=== PATIENT | female | born 1960 | race Caucasian/White ===

== ENCOUNTER 2017-03-20 06:43 | Emergency (ER) | payer MEDICARE, OTHER ==
[2017-03-20] MEDS ORDERED: K-TA10TA2 PO (06:53)
[2017-03-20] MEDS ORDERED: GABA-283 PO (06:53)
[2017-03-20] MEDS ORDERED: MAGN1TAB25 PO (06:53)
[2017-03-20] MEDS ORDERED: CALC600T7 PO (06:53)
[2017-03-20] MEDS ORDERED: LEVO112T2 PO (06:53)
[2017-03-20] MEDS ORDERED: predniSONE 20 MG TAB PO ONE (07:15)
[2017-03-20] MEDS ORDERED: IPRATROPIUM 0.5MG/ALBUTEROL 2.5MG INH SOL UD 3ML (DUONEB)(J7620) NEB ONE (07:15)
[2017-03-20] MEDS ORDERED: ALBU17IN2 INH (07:48)
[2017-03-20] MEDS ORDERED: TUSSSUS6 PO (07:48)
[2017-03-20] MEDS ORDERED: PRED20TA PO (07:48)
[2017-03-20 08:04] VITALS: BP 144/74
== END 2017-03-20 08:05 | disposition home or self-care (01) ==
LOC: M ED 07:56
DX: J20.9 Acute bronchitis, unspecified (principal); J04.0 Acute laryngitis; E03.9 Hypothyroidism, unspecified; G36.0 Neuromyelitis optica [Devic]; Z79.899 Other long term (current) drug therapy; Z79.52 Long term (current) use of systemic steroids

== ENCOUNTER → 2019-07-09 | Outpatient (REF) | payer MEDICARE, OTHER ==
[~2019-07-09] MED LIST: ALBU17IN2 INH; CALC600T7 PO; GABA-845 PO; K-TA10TA2 PO; LEVO112T2 PO; MAGN1TAB26 PO; PRED20TA PO; TUSS1SUS2 PO
== END ==
LOC: M SFHCLERA 10:47
PROVIDERS: ATTEND Physician Assistant
DX: R30.0 Dysuria (principal)
CPT/HCPCS: 81002; 87088; 87186; G0463

== ENCOUNTER → 2019-10-21 | Outpatient (CLI) | payer MEDICARE, OTHER ==
[2019-10-21 10:45] LABS: BASO # 0.1 10^3/uL (0.0-0.2); BASO % 1.3 % (0.0-1.0); EOS # 0.2 10^3/uL (0.0-0.5); EOS % 2.9 % (0.0-3.0); HEMATOCRIT 41.7 % (36.0-47.0); HEMOGLOBIN 14.1 g/dl (12.0-15.5); LYMPH # 2.1 10^3/uL (1.5-5.0); LYMPH % 25.8 % (24.0-44.0); MEAN CORPUSCULAR HEMOGLOBIN 30.5 pg (27.0-33.0); MEAN CORPUSCULAR HGB CONC 33.8 g/dl (32.0-36.5); MEAN CORPUSCULAR VOLUME 90.1 fl (80.0-96.0); MONO # 0.8 10^3/uL (0.0-0.8); NEUTROPHILS # 4.9 10^3/uL (1.5-8.5); NEUTROPHILS % 59.2 % (36.0-66.0); PLATELET COUNT, AUTOMATED 332 10^3/uL (150-450); RED BLOOD COUNT 4.63 10^6/uL (4.00-5.40); WHITE BLOOD COUNT 8.2 10^3/uL (4.0-10.0)
[2019-10-21 11:20] LABS: ALBUMIN 3.8 GM/DL (3.2-5.2); ALT/SGPT 24 U/L (12-78); BILIRUBIN,TOTAL 0.7 MG/DL (0.2-1.0); BLOOD UREA NITROGEN 12 MG/DL (7-18); CALCIUM LEVEL 9.2 MG/DL (8.5-10.1); CARBON DIOXIDE LEVEL 29 MEQ/L (21-32); CHLORIDE LEVEL 107 MEQ/L (98-107); CREATININE FOR GFR 0.71 MG/DL (0.55-1.30); GLOMERULAR FILTRATION RATE > 60.0 (>51); GLUCOSE, FASTING 95 MG/DL (70-100); RHEUMATOID FACTOR QUANT < 10.0 IU/ML (<15.0); SODIUM LEVEL 140 MEQ/L (136-145); THYROID STIMULATING HORMONE 0.543 uIU/ML (0.358-3.740); TOTAL PROTEIN 6.3 GM/DL (6.4-8.2)
[2019-10-21 11:23] LABS: VITAMIN B12 LEVEL 321 PG/ML (247-911)
[2019-10-21 11:24] LABS: FOLATE 10.7 NG/ML (>5.4)
[2019-10-21 11:57] LABS: ERYTHROCYTE SEDIMENTATION RATE 6 mm/hr (0-30)
[2019-10-23 11:08] LABS: ALBUMIN 4.11 GM/DL (3.29-5.55); ALBUMIN % 65.3 % (55.8-66.1); ALPHA-1-GLOBULIN % 4.8 % (2.9-4.9); ALPHA-2-GLOBULINS % 11.1 % (7.1-11.8); BETA-1-GLOBULINS 0.43 GM/DL (0.28-0.60); BETA-1-GLOBULINS % 6.8 % (4.7-7.2); BETA-2-GLOBULINS 0.34 GM/DL (0.19-0.55); BETA-2-GLOBULINS % 5.4 % (3.2-6.5); GAMMA GLOBULIN % 6.6 % (11.1-18.8); GAMMA GLOBULINS 0.42 GM/DL (0.65-1.58)
== END ==
LOC: M LAB 09:58
PROVIDERS: ATTEND Psychiatry & Neurology Neurology
DX: G36.0 Neuromyelitis optica [Devic] (principal)

== ENCOUNTER → 2019-11-27 | Outpatient (CLI) | payer MEDICARE, OTHER ==
[~2019-11-27] VITALS: Ht 170.2 cm; Wt 96.4 kg
[2019-11-27] VITALS (8 sets, daily range): BP systolic 117–127; BP diastolic 64–76
[~2019-11-27] MED LIST changes: +ACETAMINOPHEN TAB 650MG DOSE (2X325MG) PO ONE; +NS 1,000 ML IV SCH; +diphenhydrAMINE INJ 50MG/ML VIAL (J1200) IV ONE; +methylPREDNISolone INJ 125 MG/2 ML VIAL (J2930) IV ONE; +riTUXimab 500 MG in NS 450 ML IV ONE
== END ==
LOC: M INFU 10:56
PROVIDERS: ATTEND Psychiatry & Neurology Neurology
DX: G36.0 Neuromyelitis optica [Devic] (principal)
CPT/HCPCS: 96375; 96413; 96415; J1200; J2930; J9312

== ENCOUNTER 2019-11-28 12:58 | Outpatient (CLI) | payer MEDICARE, OTHER ==
[~2019-11-28] VITALS: Ht 170.2 cm; Wt 96.2 kg
[~2019-11-28 12:58] MED LIST changes: -ACETAMINOPHEN TAB 650MG DOSE (2X325MG) PO ONE; -NS 1,000 ML IV SCH; -diphenhydrAMINE INJ 50MG/ML VIAL (J1200) IV ONE; -methylPREDNISolone INJ 125 MG/2 ML VIAL (J2930) IV ONE; -riTUXimab 500 MG in NS 450 ML IV ONE
[2019-11-28 13:00] VITALS: BP 122/63
[2019-11-28] MEDS ORDERED: ACETAMINOPHEN TAB 650MG DOSE (2X325MG) PO ONE (13:15)
[2019-11-28] MEDS ORDERED: methylPREDNISolone INJ 125 MG/2 ML VIAL (J2930) IV PRN (13:15)
[2019-11-28] MEDS ORDERED: diphenhydrAMINE (50MG/ML) IV IV PRN (13:15)
[2019-11-28] MEDS ORDERED: riTUXimab 500 MG in NS 450 ML IV ONE (13:15)
[2019-11-28] MEDS ORDERED: methylPREDNISolone INJ 125 MG/2 ML VIAL (J2930) IV ONE (13:15)
[2019-11-28] MEDS ORDERED: diphenhydrAMINE INJ 50MG/ML VIAL (J1200) IV ONE (13:15)
[2019-11-28] MEDS ORDERED: ALBUTEROL SULFATE (2.5MG/0.5ML) NEB INH PRN (13:15)
[2019-11-28] MEDS ORDERED: EPINEPHrine (1MG/ML) IV IM PRN (13:15)
[2019-11-28 14:30] VITALS: BP 126/73
[2019-11-28 15:00] VITALS: BP 130/70
[2019-11-28 15:30] VITALS: BP 131/75
[2019-11-28 16:00] VITALS: BP 129/66
[2019-11-28 17:04] VITALS: BP 138/74
== END 2019-11-28 17:00 | disposition home or self-care (01) ==
LOC: M INFU 12:58
PROVIDERS: ATTEND Psychiatry & Neurology Neurology
DX: G36.0 Neuromyelitis optica [Devic] (principal); Z88.1 Allergy status to other antibiotic agents; Z88.6 Allergy status to analgesic agent
CPT/HCPCS: 96375; 96413; 96415; J1200; J2930; J9312

== ENCOUNTER → 2020-03-10 | Outpatient (CLI) | payer MEDICARE, OTHER ==
[~2020-03-10] MED LIST changes: +CALC-212 PO; -CALC600T7 PO; +GLUCMIS7 XX; +LANC1COM MC; +METF500T13 PO
== END ==
LOC: M LAB 12:28
PROVIDERS: ATTEND Psychiatry & Neurology Neurology
DX: R76.8 Other specified abnormal immunological findings in serum (principal)

== ENCOUNTER → 2020-04-13 | Outpatient (REF) | payer MEDICARE, OTHER ==
[~2020-04-13] MED LIST changes: -GLUCMIS7 XX; -LANC1COM MC; -METF500T13 PO
== END ==
LOC: M SFHCLERA 09:34
PROVIDERS: ATTEND Nurse Practitioner Family
DX: Z12.4 Encounter for screening for malignant neoplasm of cervix (principal); R87.610 Atypical squamous cells of undetermined significance on cytologic smear of cervix (ASC-US)
CPT/HCPCS: 87624; G0123

== ENCOUNTER 2020-05-26 07:48 | Outpatient (CLI) | payer MEDICARE, OTHER ==
[2020-05-26] VITALS (7 sets, daily range): BP systolic 129–144; BP diastolic 66–91
[~2020-05-26] VITALS: Ht 170.2 cm; Wt 95.0 kg
[2020-05-26] MEDS ORDERED: riTUXimab 500 MG in NS 450 ML IV ONE (08:00)
[2020-05-26] MEDS ORDERED: EPINEPHrine INJ 1 MG/ML 1ML AMP IM PRN (08:00)
[2020-05-26] MEDS ORDERED: ALBUTEROL SULFATE 2.5 MG/0.5 ML INH NEB SOLN INH PRN (08:00)
[2020-05-26] MEDS ORDERED: diphenhydrAMINE 50MG/ML VIAL (J1200) IV PRN (08:00)
[2020-05-26] MEDS ORDERED: methylPREDNISolone 125MG 2ML VIAL IV PRN (08:00)
[2020-05-26] MEDS ORDERED: ACETAMINOPHEN TAB 650MG DOSE (2X325MG) PO ONE (08:00)
[2020-05-26] MEDS ORDERED: methylPREDNISolone 125MG 2ML VIAL IV ONE (08:00)
[2020-05-26] MEDS ORDERED: diphenhydrAMINE 50MG/ML VIAL (J1200) IV ONE (08:02)
[2020-05-26] MEDS ORDERED: methylPREDNISolone 125MG 2ML VIAL As Ordered ONE (08:08)
[2020-05-26] MEDS ORDERED: ACETAMINOPHEN TAB 650MG DOSE (2X325MG) As Ordered ONE ×2 (08:09→08:22)
[2020-05-26] MEDS ORDERED: diphenhydrAMINE 50MG/ML VIAL (J1200) As Ordered ONE (08:09)
== END 2020-05-26 12:00 | disposition home or self-care (01) ==
LOC: M INFU 07:48
PROVIDERS: ATTEND Psychiatry & Neurology Neurology
DX: G36.0 Neuromyelitis optica [Devic] (principal); Z88.8 Allergy status to other drugs, medicaments and biological substances
CPT/HCPCS: 96375; 96413; 96415; J1200; J2930; J9312

== ENCOUNTER 2020-05-27 07:57 | Outpatient (CLI) | payer MEDICARE, OTHER ==
[~2020-05-27] VITALS: Ht 170.2 cm; Wt 95.5 kg
[2020-05-27] MEDS ORDERED: riTUXimab 500 MG in NS 450 ML IV ONE (08:00)
[2020-05-27] MEDS ORDERED: methylPREDNISolone 125MG 2ML VIAL IV ONE (08:00)
[2020-05-27] MEDS ORDERED: ACETAMINOPHEN TAB 650MG DOSE (2X325MG) PO ONE (08:00)
[2020-05-27] MEDS ORDERED: diphenhydrAMINE 50MG/ML VIAL (J1200) IV ONE (08:00)
[2020-05-27 08:06] VITALS: BP 149/72
[2020-05-27] MEDS ORDERED: ACETAMINOPHEN TAB 650MG DOSE (2X325MG) As Ordered ONE (08:09)
[2020-05-27] MEDS ORDERED: methylPREDNISolone 125MG 2ML VIAL As Ordered ONE (08:10)
[2020-05-27] MEDS ORDERED: diphenhydrAMINE 50MG/ML VIAL (J1200) As Ordered ONE (08:10)
[2020-05-27 08:15] VITALS: BP 149/72
[2020-05-27 09:29] VITALS: BP 135/63
[2020-05-27 10:30] VITALS: BP 139/78
[2020-05-27 12:07] VITALS: BP 137/75
[2020-05-27 12:08] VITALS: BP 137/75
== END 2020-05-27 12:10 | disposition home or self-care (01) ==
LOC: M INFU 07:57
PROVIDERS: ATTEND Psychiatry & Neurology Neurology
DX: G36.0 Neuromyelitis optica [Devic] (principal)
CPT/HCPCS: J1200; J2930; J9312

== ENCOUNTER → 2020-06-07 | Outpatient (CLI) | payer MEDICARE, OTHER ==
[2020-06-07 14:21] LABS: ALBUMIN 3.7 GM/DL (3.2-5.2); ALT/SGPT 48 U/L (12-78); AMYLASE 31 U/L (25-115); BILIRUBIN,DIRECT 0.2 MG/DL (0.0-0.2); BILIRUBIN,TOTAL 0.9 MG/DL (0.2-1.0); FOLATE 15.7 NG/ML; FREE T4 1.19 NG/DL (0.76-1.46); LIPASE 97 U/L (73-393); TOTAL PROTEIN 6.3 GM/DL (6.4-8.2); VITAMIN B12 LEVEL 419 PG/ML
[2020-06-07 14:31] LABS: H PYLORI QUALITATIVE IgG NEGATIVE (NEGATIVE)
[2020-06-09 06:18] LABS: IgA SERUM (part of Subclasses) 124 mg/dL (87-352); TISSUE TRANSGLUTAMINASE IgA <2 U/mL (0-3)
== END ==
LOC: M LAB 13:09
PROVIDERS: ATTEND Internal Medicine Gastroenterology
DX: R19.7 Diarrhea, unspecified (principal)

== ENCOUNTER → 2020-06-10 | Outpatient (REF) | payer MEDICARE, OTHER ==
[2020-06-21 14:08] LABS: FATS NEUTRAL Normal (.); FATS TOTAL Normal (.); PANCREATIC ELASTASE STOOL >500 (>200)
== END ==
LOC: M LAB REF 15:17
PROVIDERS: ATTEND Internal Medicine Gastroenterology
DX: R19.7 Diarrhea, unspecified (principal)

== ENCOUNTER → 2020-06-15 | Outpatient (REF) | payer MEDICARE, OTHER | LOC: M SFHCLERA 16:12 | PROVIDERS: ATTEND Nurse Practitioner Family | DX: N30.00 Acute cystitis without hematuria (principal) ==

== ENCOUNTER 2020-10-01 11:56 | Emergency (ER) | payer MEDICARE, OTHER ==
[~2020-10-01] VITALS: Ht 167.6 cm; Wt 94.7 kg
[~2020-10-01 11:56] MED LIST changes: -GLUCMIS7 XX; -LANC1COM MC; -METF500T13 PO
[2020-10-01 13:12] LABS: BASO # 0.1 10^3/uL (0.0-0.2); BASO % 1.3 % (0.0-1.0); EOS # 0.4 10^3/uL (0.0-0.5); EOS % 4.9 % (0.0-3.0); HEMATOCRIT 49.5 % (36.0-47.0); HEMOGLOBIN 16.7 g/dl (12.0-15.5); LYMPH # 1.5 10^3/uL (1.5-5.0); LYMPH % 20.1 % (24.0-44.0); MEAN CORPUSCULAR HEMOGLOBIN 30.4 pg (27.0-33.0); MEAN CORPUSCULAR HGB CONC 33.7 g/dl (32.0-36.5); MONO # 0.6 10^3/uL (0.0-0.8); MONO % 8.3 % (0.0-5.0); NEUTROPHILS # 4.8 10^3/uL (1.5-8.5); NEUTROPHILS % 64.5 % (36.0-66.0); PLATELET COUNT, AUTOMATED 301 10^3/uL (150-450); WHITE BLOOD COUNT 7.5 10^3/uL (4.0-10.0)
[2020-10-01 13:16] LABS: APPEARANCE, URINE CLEAR (CLEAR); BACTERIA, URINE AUTO NEGATIVE (NEGATIVE); BILIRUBIN, URINE AUTO NEGATIVE (NEGATIVE); BLOOD, URINE BLOOD 2+ (NEGATIVE); COLOR, URINE YELLOW (YELLOW); GLUCOSE, URINE (UA) AUTO 3+ mg/dL (NEGATIVE); KETONE, URINE AUTO 1+ mg/dL (NEGATIVE); LEUKOCYTE ESTERASE, URINE AUTO 1+ (NEGATIVE); MUCUS, URINE SMALL (NEGATIVE); NITRITE, URINE AUTO NEGATIVE (NEGATIVE); PROTEIN, URINE AUTO NEGATIVE (NEGATIVE); RBC, URINE AUTO 3 /HPF (0-3); SPECIFIC GRAVITY URINE AUTO 1.038 (1.002-1.035); SQUAMOUS EPITHELIAL CELL UR AU 1 /HPF (0-6); UROBILINOGEN, URINE AUTO 0.2 mg/dL (0.0-2.0); WBC, URINE AUTO 14 /HPF (0-3)
[2020-10-01 14:46] LABS: BLOOD UREA NITROGEN 10 MG/DL (7-18); CALCIUM LEVEL 9.5 MG/DL (8.5-10.1); CARBON DIOXIDE LEVEL 29 MEQ/L (21-32); CHLORIDE LEVEL 102 MEQ/L (98-107); CREATININE FOR GFR 0.89 MG/DL (0.55-1.30); GLOMERULAR FILTRATION RATE > 60.0 (>51); GLUCOSE, FASTING 393 MG/DL (70-100); POTASSIUM SERUM 4.4 MEQ/L (3.5-5.1); SODIUM LEVEL 137 MEQ/L (136-145)
[2020-10-01] MEDS ORDERED: GLUCMIS7 XX (15:23)
[2020-10-01] MEDS ORDERED: LANC1COM MC (15:23)
[2020-10-01] MEDS ORDERED: METF500T13 PO (15:23)
[2020-10-01 15:31] VITALS: BP 122/84
[2020-10-01 16:13] LABS: ACETONE/KETONE 4.88 MG/DL (<2.81)
== END 2020-10-01 15:44 | disposition home or self-care (01) ==
LOC: M ED 11:56
DX: E11.65 Type 2 diabetes mellitus with hyperglycemia (principal); Z79.899 Other long term (current) drug therapy; Z88.6 Allergy status to analgesic agent; Z88.8 Allergy status to other drugs, medicaments and biological substances
CPT/HCPCS: 36415; 80048; 81001; 81002; 82010; 82948; 83036; 85025; 87088; 87186; 99284; G0463

== ENCOUNTER → 2020-10-01 | Outpatient (REF) | payer MEDICARE, OTHER ==
[~2020-10-01] MED LIST changes: +GLUCMIS7 XX; +LANC1COM MC; +METF500T13 PO
== END ==
LOC: M SFHCLERA 11:21
PROVIDERS: ATTEND Nurse Practitioner Family
DX: R30.0 Dysuria (principal)

== ENCOUNTER → 2020-11-12 | Outpatient (CLI) | payer MEDICARE, OTHER ==
[~2020-11-12] MED LIST changes: +GASTROGRAFIN SOLUTION 30ML (Q9963) As Ordered ONE; +GLUCMIS7 XX; +ISOVUE-370 76% 100ML VIAL As Ordered ONE; +LANC1COM MC; +METF500T13 PO
--- NOTE | 2020-11-12 18:40 | REP ---
INDICATION: ABNORMAL WEIGHT LOSS. COMPARISON: Comparison CT study is from January 31, 2014.. TECHNIQUE: Helical scanning is acquired and 3 mm axial images re-formatted. Coronal and sagittal MPR images are generated. The CT contrast enhancement dose is 100 mL of intravenous Isovue 370. Oral contrast was also administered. FINDINGS: Preliminary digital nuclear physician radiograph shows clips in the right upper quadrant. Bowel gas pattern is normal. Axial CT images taken it lung window settings through the lung bases demonstrate patchy bilateral peripheral pattern of ground-glass opacity and interstitial changes suggestive of inflammatory disease such as viral pneumonia. These changes are new when compared with the January 31, 2014 prior study. No pleural effusion or upper abdominal ascites is seen. Liver size is borderline. There is a 16 mm vertical span in the midclavicular line. This is similar to the prior study. There is mild diffuse fatty infiltration of the liver. The spleen is borderline as well measuring 13.6 cm in greatest oblique anteroposterior dimension. Normal adrenal glands are seen. No abnormality is noted in the pancreas. The common bile duct is normal measuring 0.6 cm. The kidneys enhance symmetrically. There is a small cyst in the anterior cortex of the left mid kidney unchanged. No retroperitoneal mass or adenopathy is seen. There are 2 tiny accessory splenules in the left upper quadrant anterior to the spleen unchanged. No mesenteric mass or adenopathy is seen. Small and large bowel loops are unremarkable in the abdomen and pelvis. A normal appendix is seen in the right lower quadrant. There are a few diverticuli in the sigmoid colon. There appears to have been a subtotal hysterectomy with some cervical tissue remaining. No pelvic mass or adenopathy is seen. No ovarian lesion is seen. There is no evidence of abdominal wall defect or bony destructive lesion. IMPRESSION: Mild fatty infiltration of the liver. Borderline hepatosplenomegaly. Post cholecystectomy and subtotal hysterectomy. Small cyst left kidney. No acute abnormality. <Electronically signed by Ayan Larson > 11/12/20 [id number]
== END ==
LOC: M RAD 12:28
PROVIDERS: ATTEND Internal Medicine Gastroenterology
DX: R63.4 Abnormal weight loss (principal); K76.0 Fatty (change of) liver, not elsewhere classified; N28.1 Cyst of kidney, acquired
CPT/HCPCS: 74177; Q9963; Q9967

== ENCOUNTER 2020-12-22 11:00 | Outpatient (CLI) | payer MEDICARE, OTHER ==
[~2020-12-22] VITALS: Ht 170.2 cm; Wt 95.2 kg
[~2020-12-22 11:00] MED LIST changes: +ACETAMINOPHEN TAB 650MG DOSE (2X325MG) PO ONE; +ALBUTEROL SULFATE 2.5 MG/0.5 ML INH NEB SOLN INH PRN; +EPINEPHrine INJ 1 MG/ML 1ML AMP IM PRN; -GASTROGRAFIN SOLUTION 30ML (Q9963) As Ordered ONE; -ISOVUE-370 76% 100ML VIAL As Ordered ONE; +NS 1,000 ML IV SCH; +diphenhydrAMINE 50MG/ML VIAL (J1200) IV ONE; +diphenhydrAMINE 50MG/ML VIAL (J1200) IV PRN; +methylPREDNISolone 125MG 2ML VIAL IV ONE; +methylPREDNISolone 125MG 2ML VIAL IV PRN; +riTUXimab 500 MG in NS 450 ML IV ONE
[2020-12-22 11:27] VITALS: BP 131/80
[2020-12-22 11:33] VITALS: BP 131/80
[2020-12-22 12:15] VITALS: BP 111/66
[2020-12-22 12:45] VITALS: BP 111/64
[2020-12-22 13:15] VITALS: BP 135/72
[2020-12-22 14:15] VITALS: BP 128/74
== END 2020-12-22 14:15 | disposition home or self-care (01) ==
LOC: M INFU 11:00
PROVIDERS: ATTEND Psychiatry & Neurology Neurology
DX: G36.0 Neuromyelitis optica [Devic] (principal); Z88.1 Allergy status to other antibiotic agents; Z88.6 Allergy status to analgesic agent
CPT/HCPCS: 96375; 96413; 96415; J1200; J2930; J9312

== ENCOUNTER 2020-12-23 10:35 | Outpatient (CLI) | payer MEDICARE, OTHER ==
[~2020-12-23] VITALS: Ht 170.2 cm; Wt 95.5 kg
[~2020-12-23 10:35] MED LIST changes: -ACETAMINOPHEN TAB 650MG DOSE (2X325MG) PO ONE; -NS 1,000 ML IV SCH; -diphenhydrAMINE 50MG/ML VIAL (J1200) IV ONE; -methylPREDNISolone 125MG 2ML VIAL IV ONE; -riTUXimab 500 MG in NS 450 ML IV ONE
[2020-12-23] MEDS ORDERED: ACETAMINOPHEN TAB 650MG DOSE (2X325MG) PO ONE (11:00)
[2020-12-23] MEDS ORDERED: NS 1,000 ML IV SCH (11:00)
[2020-12-23] MEDS ORDERED: riTUXimab 500 MG in NS 450 ML IV ONE (11:00)
[2020-12-23] MEDS ORDERED: diphenhydrAMINE 50MG/ML VIAL (J1200) IV ONE (11:00)
[2020-12-23] MEDS ORDERED: methylPREDNISolone 125MG 2ML VIAL IV ONE (11:00)
[2020-12-23 11:30] VITALS: BP 158/80
[2020-12-23 12:20] VITALS: BP 128/74
[2020-12-23 12:50] VITALS: BP 125/76
[2020-12-23 13:20] VITALS: BP 127/74
[2020-12-23 14:04] VITALS: BP 148/78
== END 2020-12-23 14:05 | disposition home or self-care (01) ==
LOC: M INFU 10:35
PROVIDERS: ATTEND Psychiatry & Neurology Neurology
DX: G36.0 Neuromyelitis optica [Devic] (principal); Z88.1 Allergy status to other antibiotic agents; Z88.6 Allergy status to analgesic agent
CPT/HCPCS: 96375; 96413; 96415; J1200; J2930; J9312

== ENCOUNTER → 2021-01-09 | Outpatient (CLI) | payer MEDICARE, OTHER ==
[~2021-01-09] MED LIST changes: -ALBUTEROL SULFATE 2.5 MG/0.5 ML INH NEB SOLN INH PRN; -EPINEPHrine INJ 1 MG/ML 1ML AMP IM PRN; -diphenhydrAMINE 50MG/ML VIAL (J1200) IV PRN; -methylPREDNISolone 125MG 2ML VIAL IV PRN
== END ==
LOC: M LABSMTC 08:18
PROVIDERS: ATTEND Anesthesiology
DX: Z01.818 Encounter for other preprocedural examination (principal); Z20.822 Contact with and (suspected) exposure to COVID-19

== ENCOUNTER 2021-01-14 06:55 | Day surgery (SDC) | payer MEDICARE, OTHER ==
[~2021-01-14] VITALS: Ht 170.2 cm; Wt 87.5 kg
[2021-01-14] MEDS ORDERED: NS 1,000 ML IV ONE (07:00)
[2021-01-14] MEDS ORDERED: SIMETHICONE 40MG/0.6ML DROPS 30ML As Ordered ONE (07:08)
[2021-01-14] MEDS ORDERED: propofoL 200 MG/20 ML VIAL As Ordered ONE (07:24)
[2021-01-14] MEDS ORDERED: LIDOCAINE 2% 100MG/5ML SDV (FOR ANES.) As Ordered ONE (07:24)
--- NOTE | 2021-01-14 08:16 | ROOR ---
Patient Name: Mindy Mason Procedure Date: 01/14/2021 7:27 AM Date of : 1960 Age: 60 Room: [facility] Gender: Female Note Status: Finalized Procedure: Colonoscopy Indications: Change in bowel habits, Weight loss Providers: Chato Guaman MD Referring MD: Rosanna JANG Requesting Provider: Medicines: Monitored Anesthesia Care Complications: No immediate complications. Procedure: Pre-Anesthesia Assessment: - Prior to the procedure, a History and Physical was performed, and patient medications and allergies were reviewed. The patient is competent. The risks and benefits of the procedure and the sedation options and risks were discussed with the patient. All questions were answered and informed consent was obtained. Patient identification and proposed procedure were verified by the physician, the nurse and the anesthesiologist in the procedure room. Mental Status Examination: alert and oriented. Airway Examination: normal oropharyngeal airway and neck mobility. Respiratory Examination: clear to auscultation. CV Examination: normal. Prophylactic Antibiotics: The patient does not require prophylactic antibiotics. Prior Anticoagulants: The patient has taken no previous anticoagulant or antiplatelet agents. ASA Grade Assessment: II - A patient with mild systemic disease. After reviewing the risks and benefits, the patient was deemed in satisfactory condition to undergo the procedure. The anesthesia plan was to use monitored anesthesia care (MAC). Immediately prior to administration of medications, the patient was re-assessed for adequacy to receive sedatives. The heart rate, respiratory rate, oxygen saturations, blood pressure, adequacy of pulmonary ventilation, and response to care were monitored throughout the procedure. The physical status of the patient was re-assessed after the procedure. The Colonoscope was introduced through the anus and advanced to the terminal ileum, with identification of the appendiceal orifice and IC valve. The colonoscopy was performed without difficulty. The patient tolerated the procedure well. The quality of the bowel preparation was good. The terminal ileum, ileocecal valve, appendiceal orifice, and rectum were photographed. Scope insertion time was 2 minutes. Scope withdrawal time was 9 minutes. The total duration of the procedure was 12 minutes. Findings: The perianal and digital rectal examinations were normal. The terminal ileum appeared normal. A 4 mm polyp was found in the descending colon. The polyp was sessile. The polyp was removed with a jumbo cold forceps. Resection and retrieval were complete. Verification of patient identification for the specimen was done by the physician and nurse using the patient's name, date and medical record number. Estimated blood loss was minimal. Multiple small and large-mouthed diverticula were found from sigmoid to ascending colon. There was no evidence of diverticular bleeding. Non-bleeding external and internal hemorrhoids were found during retroflexion. The hemorrhoids were small. Impression: - The examined portion of the ileum was normal. - One 4 mm polyp in the descending colon, removed with a jumbo cold forceps. Resected and retrieved. - Moderate diverticulosis from sigmoid to ascending colon. There was no evidence of diverticular bleeding. - Non-bleeding external and internal hemorrhoids. Recommendation: - Patient has a contact number available for emergencies. The signs and symptoms of potential delayed complications were discussed with the patient. Return to normal activities tomorrow. Written discharge instructions were provided to the patient. - High fiber diet. - Continue present medications. - Use original regular Metamucil one tablespoon PO daily. - Await pathology results. - Repeat colonoscopy in 5 years for surveillance based on pathology results. - Telephone GI clinic for pathology results in 2 weeks. - Return to GI clinic if persistent symptoms or new symptoms. - Return to primary care physician. Procedure Code(s): --- Professional --- 54297, Colonoscopy, flexible; with biopsy, single or multiple Diagnosis Code(s): --- Professional --- K64.8, Other hemorrhoids K63.5, Polyp of colon R19.4, Change in bowel habit R63.4, Abnormal weight loss K57.30, Diverticulosis of large intestine without perforation or abscess without bleeding CPT copyright 2019 [employer] [place] [employer]. All rights reserved. The codes documented in this report are preliminary and upon hospital coder review may be revised to meet current compliance requirements. Chato Guaman MD Chato Guaman MD 01/14/2021 8:15:56 AM Electronically signed by Chato Guaman MD Number of Addenda: 0 Note Initiated On: 01/14/2021 7:27 AM Estimated Blood Loss: Estimated blood loss was minimal.
[2021-01-14 08:26] VITALS: BP 131/78
== END 2021-01-14 08:28 | disposition home or self-care (01) ==
LOC: M OPP 06:55
PROVIDERS: ATTEND Internal Medicine Gastroenterology
DX: K63.5 Polyp of colon (principal); K57.30 Diverticulosis of large intestine without perforation or abscess without bleeding; K64.8 Other hemorrhoids; R19.4 Change in bowel habit; R63.4 Abnormal weight loss; E11.9 Type 2 diabetes mellitus without complications; E03.9 Hypothyroidism, unspecified; Z79.84 Long term (current) use of oral hypoglycemic drugs; Z79.899 Other long term (current) drug therapy; Z88.8 Allergy status to other drugs, medicaments and biological substances

== ENCOUNTER → 2021-01-17 | Outpatient (REF) | payer MEDICARE, OTHER ==
[2021-01-17 16:00] LABS: HEMOGLOBIN A1c 5.1 %
[2021-01-17 16:09] LABS: ALT/SGPT 35 U/L (12-78); BILIRUBIN,TOTAL 0.6 MG/DL (0.2-1.0); BLOOD UREA NITROGEN 10 MG/DL (7-18); CALCIUM LEVEL 9.7 MG/DL (8.5-10.1); CARBON DIOXIDE LEVEL 29 MEQ/L (21-32); CHLORIDE LEVEL 108 MEQ/L (98-107); CHOLESTEROL LEVEL 197 MG/DL (<200); CHOLESTEROL RISK RATIO 5.324 (<5); CREATININE FOR GFR 0.66 MG/DL (0.55-1.30); GLOMERULAR FILTRATION RATE > 60.0 (>51); GLUCOSE, FASTING 81 MG/DL (70-100); HDL CHOLESTEROL 37 MG/DL (>40); LDL CHOLESTEROL 110 MG/DL (<100); NON-HDL-C 160 MG/DL; POTASSIUM SERUM 4.6 MEQ/L (3.5-5.1); SODIUM LEVEL 143 MEQ/L (136-145); TOTAL PROTEIN 6.6 GM/DL (6.4-8.2); TRIGLYCERIDES LEVEL 249 MG/DL (<150)
[2021-01-17 16:25] LABS: CREATININE, URINE 28.6 MG/DL; MAU/CREAT RATIO 20.9 MCG/MG (0.0-30.0)
== END ==
LOC: M PLALAB 13:11
PROVIDERS: ATTEND Nurse Practitioner Family
DX: E11.65 Type 2 diabetes mellitus with hyperglycemia (principal); Z13.220 Encounter for screening for lipoid disorders

== ENCOUNTER → 2021-01-17 | Outpatient (CLI) | payer MEDICARE, OTHER ==
[~2021-01-17] MED LIST changes: +GABA-283 PO; -GABA-845 PO
--- NOTE | 2021-02-02 15:14 | REPMRS ---
Patient History The patient states she has not had a clinical breast exam in over a year. Family history of breast cancer at age 46 in sister, breast cancer at age 50 or over in maternal aunt. Patient states no breast complaints. Patient has signed MRS history sheet. Digital Woman Screen Mammo: January 17, 2021 - Exam #: [id number] Bilateral CC and MLO view(s) were taken. Technologist: Lisa Gutierrez, Technologist Prior study comparison: 2018, bilateral digital mammo screening bilat, [facility]. FINDINGS: There are scattered fibroglandular densities. Screening. Digital screening (2D) mammography was performed bilaterally in the CC and MLO projections. Additionally, breast tomosynthesis (3D mammography) was performed bilaterally in the CC and MLO projections. Todays exam was compared to the prior exams. By history, the patient has no complaints of a palpable breast abnormality or other significant breast complaints. The breasts are unchanged in size and shape. There are no iesha-soft tissue densities or spiculated masses. There is no internal architectural distortion. Once again, stable benign appearing calcifications are seen.There are no suspicious iesha-calcific clusters. Skin thickening or nipple retraction is not present. IMPRESSION: BI-RADS Category 2- Benign Findings. There is no evidence of malignant alteration of the breasts. Followup examination recommended in one year. The Volpara volumetric breast density category is B, there are scattered areas of fibroglandular density. This mammogram was read with the assistance of [employer],an FDA approved computer aided detection system for mammography. The lifetime Tyrer-Cuzick score is 12.3 % Negative x-ray reports should not delay surgical consultation if a dominant or clinically suspicious mass is present. Not all breast cancers can be identified by mammography. Therefore, we recommend that you continue to perform regular breast self-examination and physical examination and then promptly contact your physician of any concerns or changes. Adenosis and dense breasts may obscure an underlying neoplasm. Assessment: BI-RADS/ACR category 2 mammogram. Benign Findings. Recommendation Routine screening mammogram of both breasts in 1 year. Electronically Signed By: Marcel Manzanares DO 02/02/21 [id number]
== END ==
LOC: M WHC 12:36
PROVIDERS: ATTEND Nurse Practitioner Family
DX: Z12.31 Encounter for screening mammogram for malignant neoplasm of breast (principal)

== ENCOUNTER → 2021-03-01 | Outpatient (REF) | payer MEDICARE, OTHER | LOC: M SFHCLERA 15:51 | PROVIDERS: ATTEND Nurse Practitioner Family | DX: R30.0 Dysuria (principal) | CPT/HCPCS: 81002; 87086; G0463 ==

== ENCOUNTER → 2021-05-10 | Outpatient (REF) | payer MEDICARE, OTHER ==
[2021-05-10 14:53] LABS: APPEARANCE, URINE HAZY (CLEAR); BACTERIA, URINE AUTO 1+ (NEGATIVE); BILIRUBIN, URINE AUTO NEGATIVE (NEGATIVE); BLOOD, URINE BLOOD 1+ (NEGATIVE); COLOR, URINE YELLOW (YELLOW); GLUCOSE, URINE (UA) AUTO NEGATIVE (NEGATIVE); KETONE, URINE AUTO NEGATIVE (NEGATIVE); LEUKOCYTE ESTERASE, URINE AUTO 3+ (NEGATIVE); MUCUS, URINE SMALL (NEGATIVE); NITRITE, URINE AUTO NEGATIVE (NEGATIVE); PROTEIN, URINE AUTO NEGATIVE (NEGATIVE); RBC, URINE AUTO 6 /HPF (0-3); SPECIFIC GRAVITY URINE AUTO 1.019 (1.002-1.035); SQUAMOUS EPITHELIAL CELL UR AU 5 /HPF (0-6); TRANSITIONAL EPITHELIAL AUTO <1 /HPF; UROBILINOGEN, URINE AUTO 0.2 mg/dL (0.0-2.0); WBC, URINE AUTO 75 /HPF (0-3)
== END ==
LOC: M LAB REF 14:35
PROVIDERS: ATTEND Physician Assistant Medical
DX: R30.0 Dysuria (principal)

== ENCOUNTER → 2021-05-23 | Outpatient (REF) | payer MEDICARE, OTHER | LOC: M SFHCLERA 16:14 | PROVIDERS: ATTEND Nurse Practitioner Family | DX: R30.0 Dysuria (principal) | CPT/HCPCS: 81002; 87088; 87186; G0463 ==

== ENCOUNTER → 2021-06-06 | Outpatient (CLI) | payer MEDICARE, OTHER ==
--- NOTE | 2021-06-06 09:10 | REP ---
INDICATION: POLYP OF COLON PORTAL VESSEL. COMPARISON: 01/31/2014. TECHNIQUE: Real-time sonographic evaluation of ABDOMEN performed. Duplex Doppler evaluation is performed of the portal vasculature. FINDINGS: There has been a prior cholecystectomy.. Maximum diameter of the common bile duct is 14 mm, mildly prominent. Liver demonstrates diffuse coarsened heterogeneous echotexture compatible with diffuse fibrofatty infiltration. No gross mass is seen. Pancreas is not optimally visualized due to overlying bowel gas, no gross mass is seen. Spleen is mildly enlarged measuring 12.8 x 13.4 x 5.8 cm, splenic index 994. There is no hydronephrosis of either kidney. A cystic structure in the mid left kidney measures 1.7 x 1.5 x 1.5 cm. The right kidney measures 12.1 x 6.0 x 4.9 cm. Left renal dimensions are 13.5 x 6.0 x 5 3 cm. The abdominal aorta is normal in caliber with no aneurysm. No free fluid is seen. The main portal vein measures 16 mm, mildly dilated suggesting portal hypertension. There is normal direction of flow in the portal vasculature with normal velocities and Doppler spectral waveforms. There is no evidence of portal vein or hepatic vein thrombosis. Peak systolic velocity of the main hepatic artery is 56 centimeter/second, resistive index 0.72. IMPRESSION: Status post cholecystectomy. Mildly dilated common bile duct. The liver has a cirrhotic appearance and there are findings compatible with portal hypertension with mild splenomegaly. Normal direction of flow in the portal vasculature with no thrombosis. <Electronically signed by Tristan So > 06/06/21 0906
== END ==
LOC: M RAD 08:02
PROVIDERS: ATTEND Internal Medicine Gastroenterology
DX: K63.5 Polyp of colon (principal)

== ENCOUNTER 2021-06-23 07:49 | Outpatient (CLI) | payer MEDICARE, OTHER ==
[~2021-06-23] VITALS: Ht 170.2 cm; Wt 95.3 kg
[~2021-06-23 07:49] MED LIST changes: +ALBUTEROL SULFATE 2.5 MG/0.5 ML INH NEB SOLN INH PRN; +EPINEPHrine INJ 1 MG/ML 1ML AMP IM PRN; +diphenhydrAMINE 50MG/ML VIAL (J1200) IV PRN; +methylPREDNISolone 125MG 2ML VIAL IV PRN
[2021-06-23] MEDS ORDERED: riTUXimab (SUBSEQUENT INFUSIONS) IV ONE ×2 (08:00)
[2021-06-23] MEDS ORDERED: NS 1,000 ML IV SCH (08:00)
[2021-06-23] MEDS ORDERED: methylPREDNISolone 125MG 2ML VIAL IV ONE (08:00)
[2021-06-23] MEDS ORDERED: riTUXimab (INITIAL INFUSION) IV ONE ×2 (08:00)
[2021-06-23] MEDS ORDERED: ACETAMINOPHEN TAB 650MG DOSE (2X325MG) PO ONE (08:00)
[2021-06-23] MEDS ORDERED: diphenhydrAMINE 50MG/ML VIAL (J1200) IV ONE (08:00)
[2021-06-23 08:35] VITALS: BP 145/75
[2021-06-23 08:56] LABS: BASO # 0.1 10^3/uL (0.0-0.2); BASO % 1.3 % (0.0-1.0); EOS # 0.3 10^3/uL (0.0-0.5); EOS % 3.6 % (0.0-3.0); HEMATOCRIT 41.8 % (36.0-47.0); HEMOGLOBIN 14.7 g/dl (12.0-15.5); LYMPH # 1.7 10^3/uL (1.5-5.0); LYMPH % 23.9 % (24.0-44.0); MEAN CORPUSCULAR HEMOGLOBIN 32.1 pg (27.0-33.0); MEAN CORPUSCULAR HGB CONC 35.2 g/dl (32.0-36.5); MEAN CORPUSCULAR VOLUME 91.3 fl (80.0-96.0); MONO # 0.8 10^3/uL (0.0-0.8); MONO % 10.5 % (2.0-8.0); NEUTROPHILS # 4.3 10^3/uL (1.5-8.5); NEUTROPHILS % 59.7 % (36.0-66.0); PLATELET COUNT, AUTOMATED 347 10^3/uL (150-450); RED BLOOD COUNT 4.58 10^6/uL (4.00-5.40); WHITE BLOOD COUNT 7.1 10^3/uL (4.0-10.0)
== END 2021-06-23 08:35 | disposition home or self-care (01) ==
LOC: M INFU 07:49
PROVIDERS: ATTEND Psychiatry & Neurology Neurology
DX: G36.0 Neuromyelitis optica [Devic] (principal); Z88.6 Allergy status to analgesic agent

== ENCOUNTER 2021-06-30 10:09 | Outpatient (CLI) | payer MEDICARE, OTHER ==
[~2021-06-30] VITALS: Ht 170.2 cm; Wt 95.0 kg
[~2021-06-30 10:09] MED LIST changes: +ACETAMINOPHEN TAB 650MG DOSE (2X325MG) PO ONE; +NS 1,000 ML IV SCH; +diphenhydrAMINE 50MG/ML VIAL (J1200) IV ONE; +methylPREDNISolone 125MG 2ML VIAL IV ONE; +riTUXimab 500 MG in NS 450 ML IV ONE
[2021-06-30] MEDS ORDERED: methylPREDNISolone 125MG 2ML VIAL IV ONE (10:30)
[2021-06-30] MEDS ORDERED: riTUXimab 500 MG in NS 450 ML IV ONE (10:30)
[2021-06-30] MEDS ORDERED: diphenhydrAMINE 25MG IV PRIOR TO INFUSION IV ONE (10:30)
[2021-06-30] MEDS ORDERED: ACETAMINOPHEN 650MG PO PRIOR TO INFUSION PO ONE (10:30)
[2021-06-30] MEDS ORDERED: NS 1,000 ML IV SCH (10:30)
[2021-06-30 11:00] VITALS: BP 141/81
[2021-06-30 13:00] VITALS: BP 129/66
[2021-06-30 13:30] VITALS: BP 129/72
[2021-06-30 14:00] VITALS: BP 118/66
[2021-06-30 14:37] VITALS: BP 141/78
== END 2021-06-30 14:40 | disposition home or self-care (01) ==
LOC: M INFU 10:09
PROVIDERS: ATTEND Psychiatry & Neurology Neurology
DX: G36.0 Neuromyelitis optica [Devic] (principal); Z88.6 Allergy status to analgesic agent
CPT/HCPCS: 96375; 96413; 96415; J1200; J2930; J9312

== ENCOUNTER 2021-07-01 07:45 | Outpatient (CLI) | payer MEDICARE, OTHER ==
[~2021-07-01] VITALS: Ht 170.2 cm; Wt 95.4 kg
[~2021-07-01 07:45] MED LIST changes: -ACETAMINOPHEN TAB 650MG DOSE (2X325MG) PO ONE; -NS 1,000 ML IV SCH; -diphenhydrAMINE 50MG/ML VIAL (J1200) IV ONE; -methylPREDNISolone 125MG 2ML VIAL IV ONE; -riTUXimab 500 MG in NS 450 ML IV ONE
[2021-07-01 07:50] VITALS: BP 135/75
[2021-07-01] MEDS ORDERED: NS 1,000 ML IV SCH (08:00)
[2021-07-01] MEDS ORDERED: diphenhydrAMINE 25MG IV PRIOR TO INFUSION IV ONE (08:00)
[2021-07-01] MEDS ORDERED: riTUXimab 500 MG in NS 450 ML IV ONE (08:00)
[2021-07-01] MEDS ORDERED: ACETAMINOPHEN 650MG PO PRIOR TO INFUSION PO ONE (08:00)
[2021-07-01] MEDS ORDERED: methylPREDNISolone 125MG 2ML VIAL IV ONE (08:00)
[2021-07-01 08:11] VITALS: BP 135/75
[2021-07-01 09:15] VITALS: BP 128/68
[2021-07-01 09:45] VITALS: BP 120/68
[2021-07-01 11:00] VITALS: BP 135/73
== END 2021-07-01 11:00 | disposition home or self-care (01) ==
LOC: M INFU 07:45
PROVIDERS: ATTEND Psychiatry & Neurology Neurology
DX: G36.0 Neuromyelitis optica [Devic] (principal); Z88.6 Allergy status to analgesic agent
CPT/HCPCS: 96375; 96413; 96415; J1200; J2930; J9312

== ENCOUNTER → 2021-08-08 | Outpatient (REF) | payer MEDICARE, OTHER ==
[~2021-08-08] MED LIST changes: -ALBUTEROL SULFATE 2.5 MG/0.5 ML INH NEB SOLN INH PRN; -EPINEPHrine INJ 1 MG/ML 1ML AMP IM PRN; -diphenhydrAMINE 50MG/ML VIAL (J1200) IV PRN; -methylPREDNISolone 125MG 2ML VIAL IV PRN
== END ==
LOC: M SFHCLERA 15:38
PROVIDERS: ATTEND Nurse Practitioner Family
DX: R30.0 Dysuria (principal)
CPT/HCPCS: 81002; 87088; 87186; G0463

== ENCOUNTER → 2021-08-15 | Outpatient (REF) | payer MEDICARE, OTHER ==
[2021-08-15 18:12] LABS: APPEARANCE, URINE CLEAR (CLEAR); BACTERIA, URINE AUTO NEGATIVE (NEGATIVE); BILIRUBIN, URINE AUTO NEGATIVE (NEGATIVE); BLOOD, URINE BLOOD NEGATIVE (NEGATIVE); COLOR, URINE YELLOW (YELLOW); GLUCOSE, URINE (UA) AUTO NEGATIVE (NEGATIVE); KETONE, URINE AUTO NEGATIVE (NEGATIVE); LEUKOCYTE ESTERASE, URINE AUTO NEGATIVE (NEGATIVE); MUCUS, URINE SMALL (NEGATIVE); NITRITE, URINE AUTO NEGATIVE (NEGATIVE); PROTEIN, URINE AUTO NEGATIVE (NEGATIVE); RBC, URINE AUTO 0 /HPF (0-3); SPECIFIC GRAVITY URINE AUTO 1.013 (1.002-1.035); SQUAMOUS EPITHELIAL CELL UR AU 1 /HPF (0-6); UROBILINOGEN, URINE AUTO 0.2 mg/dL (0.0-2.0); WBC, URINE AUTO 1 /HPF (0-3)
== END ==
LOC: M SMT 16:49
PROVIDERS: ATTEND Urology
DX: N39.0 Urinary tract infection, site not specified (principal); N20.0 Calculus of kidney

== ENCOUNTER → 2021-09-09 | Outpatient (REF) | payer MEDICARE, OTHER ==
[~2021-09-09] MED LIST changes: +PROT1TAB2 PO
[2021-09-09 20:21] LABS: BLOOD UREA NITROGEN 16 MG/DL (7-18); CALCIUM LEVEL 9.1 MG/DL (8.5-10.1); CARBON DIOXIDE LEVEL 28 MEQ/L (21-32); CHLORIDE LEVEL 108 MEQ/L (98-107); CREATININE FOR GFR 0.71 MG/DL (0.55-1.30); GLOMERULAR FILTRATION RATE > 60.0 (>51); GLUCOSE, FASTING 85 MG/DL (70-100); POTASSIUM SERUM 3.9 MEQ/L (3.5-5.1); SODIUM LEVEL 142 MEQ/L (136-145)
[2021-09-09 20:23] LABS: APPEARANCE, URINE CLEAR (CLEAR); BACTERIA, URINE AUTO NEGATIVE (NEGATIVE); BILIRUBIN, URINE AUTO NEGATIVE (NEGATIVE); BLOOD, URINE BLOOD NEGATIVE (NEGATIVE); COLOR, URINE YELLOW (YELLOW); GLUCOSE, URINE (UA) AUTO NEGATIVE (NEGATIVE); KETONE, URINE AUTO NEGATIVE (NEGATIVE); LEUKOCYTE ESTERASE, URINE AUTO 1+ (NEGATIVE); MUCUS, URINE SMALL (NEGATIVE); NITRITE, URINE AUTO NEGATIVE (NEGATIVE); PROTEIN, URINE AUTO NEGATIVE (NEGATIVE); RBC, URINE AUTO 3 /HPF (0-3); SQUAMOUS EPITHELIAL CELL UR AU 2 /HPF (0-6); UROBILINOGEN, URINE AUTO 0.2 mg/dL (0.0-2.0); WBC, URINE AUTO 8 /HPF (0-3)
== END ==
LOC: M WUC 19:29
PROVIDERS: ATTEND Urology
DX: N39.0 Urinary tract infection, site not specified (principal); N20.0 Calculus of kidney

== ENCOUNTER → 2021-09-12 | Outpatient (CLI) | payer MEDICARE, OTHER ==
[~2021-09-12] MED LIST changes: +ISOVUE-370 76% 100ML VIAL As Ordered ONE
== END ==
LOC: M RAD 09-09 14:56
PROVIDERS: ATTEND Urology
DX: N39.0 Urinary tract infection, site not specified (principal); N20.0 Calculus of kidney
CPT/HCPCS: 74178; Q9967

== ENCOUNTER 2021-10-30 10:29 | Emergency (ER) | payer MEDICARE, OTHER ==
[~2021-10-30] VITALS: Ht 167.6 cm; Wt 92.7 kg
[~2021-10-30 10:29] MED LIST changes: -ISOVUE-370 76% 100ML VIAL As Ordered ONE; -PROT1TAB2 PO
[2021-10-30 12:24] LABS: BASO # 0.1 10^3/uL (0.0-0.2); EOS # 0.3 10^3/uL (0.0-0.5); EOS % 2.9 % (0.0-3.0); HEMATOCRIT 43.6 % (36.0-47.0); HEMOGLOBIN 14.9 g/dl (12.0-15.5); LYMPH # 2.6 10^3/uL (1.5-5.0); LYMPH % 28.6 % (24.0-44.0); MEAN CORPUSCULAR HEMOGLOBIN 30.5 pg (27.0-33.0); MEAN CORPUSCULAR HGB CONC 34.2 g/dl (32.0-36.5); MEAN CORPUSCULAR VOLUME 89.3 fl (80.0-96.0); MONO # 0.8 10^3/uL (0.0-0.8); NEUTROPHILS # 5.2 10^3/uL (1.5-8.5); NEUTROPHILS % 57.7 % (36.0-66.0); PLATELET COUNT, AUTOMATED 356 10^3/uL (150-450); RED BLOOD COUNT 4.88 10^6/uL (4.00-5.40)
[2021-10-30 12:43] LABS: BILIRUBIN,DIRECT 0.2 MG/DL (0.0-0.2); BILIRUBIN,TOTAL 0.6 MG/DL (0.2-1.0); TOTAL PROTEIN 6.7 GM/DL (6.4-8.2)
[2021-10-30] MEDS ORDERED: ISOVUE-370 76% 100ML VIAL As Ordered ONE (12:59)
[2021-10-30] MEDS ORDERED: PROT1TAB2 PO (14:13)
[2021-10-30 14:36] VITALS: BP 118/72
== END 2021-10-30 14:38 | disposition home or self-care (01) ==
LOC: M ED 10:29
DX: R10.11 Right upper quadrant pain (principal); R10.12 Left upper quadrant pain; R19.7 Diarrhea, unspecified; E11.9 Type 2 diabetes mellitus without complications; E03.9 Hypothyroidism, unspecified; Z87.442 Personal history of urinary calculi; Z79.4 Long term (current) use of insulin; Z88.6 Allergy status to analgesic agent
CPT/HCPCS: 71046; 71275; 74175; 80047; 80076; 83690; 84484; 85025; 93005; 99284; Q9967

== ENCOUNTER → 2021-11-07 | Outpatient (CLI) | payer MEDICARE, OTHER ==
[~2021-11-07] MED LIST changes: +PROT1TAB2 PO
== END ==
LOC: M PLAIMG 08:20
PROVIDERS: ATTEND Internal Medicine Gastroenterology
DX: K74.60 Unspecified cirrhosis of liver (principal)

== ENCOUNTER → 2021-12-05 | Outpatient (REF) | payer MEDICARE, OTHER | LOC: M SFHCLERA 11:17 | PROVIDERS: ATTEND Family Medicine | DX: R39.15 Urgency of urination (principal) ==

== ENCOUNTER 2021-12-28 06:50 | Outpatient (CLI) | payer MEDICARE, OTHER ==
[~2021-12-28] VITALS: Ht 170.2 cm; Wt 95.3 kg
[2021-12-28] MEDS ORDERED: diphenhydrAMINE 50MG/ML VIAL (J1200) IV PRN (07:01)
[2021-12-28] MEDS ORDERED: ALBUTEROL SULFATE 2.5 MG/0.5 ML INH NEB SOLN INH PRN (07:01)
[2021-12-28] MEDS ORDERED: methylPREDNISolone 125MG 2ML VIAL IV PRN (07:01)
[2021-12-28] MEDS ORDERED: EPINEPHrine INJ 1 MG/ML 1ML AMP IM PRN (07:01)
[2021-12-28] MEDS ORDERED: riTUXimab 500 MG in NS 450 ML IV ONE (07:05)
[2021-12-28] MEDS ORDERED: ACETAMINOPHEN TAB 650MG DOSE (2X325MG) PO ONE (07:10)
[2021-12-28] MEDS ORDERED: methylPREDNISolone 125MG 2ML VIAL IV ONE (07:10)
[2021-12-28] MEDS ORDERED: NS 1,000 ML IV SCH (07:10)
[2021-12-28] MEDS ORDERED: diphenhydrAMINE 50MG/ML VIAL (J1200) IV ONE (07:10)
[2021-12-28 07:23] VITALS: BP 167/90
[2021-12-28 08:20] VITALS: BP 125/72
[2021-12-28 08:50] VITALS: BP 130/73
[2021-12-28 09:20] VITALS: BP 128/69
[2021-12-28 10:00] VITALS: BP 134/73
== END 2021-12-28 10:00 | disposition home or self-care (01) ==
LOC: M INFU 06:50
PROVIDERS: ATTEND Psychiatry & Neurology Neurology
DX: G36.0 Neuromyelitis optica [Devic] (principal); Z88.6 Allergy status to analgesic agent
CPT/HCPCS: 96375; 96413; 96415; J1200; J2930; J9312

== ENCOUNTER 2021-12-29 08:30 | Outpatient (CLI) | payer MEDICARE, OTHER ==
[~2021-12-29] VITALS: Ht 170.2 cm; Wt 95.2 kg
[2021-12-29 08:30] VITALS: BP 138/72
[~2021-12-29 08:30] MED LIST changes: +ACETAMINOPHEN TAB 650MG DOSE (2X325MG) PO ONE; +ALBUTEROL SULFATE 2.5 MG/0.5 ML INH NEB SOLN INH PRN; +EPINEPHrine INJ 1 MG/ML 1ML AMP IM PRN; +NS 1,000 ML IV SCH; +diphenhydrAMINE 50MG/ML VIAL (J1200) IV ONE; +diphenhydrAMINE 50MG/ML VIAL (J1200) IV PRN; +methylPREDNISolone 125MG 2ML VIAL IV ONE; +methylPREDNISolone 125MG 2ML VIAL IV PRN; +riTUXimab 500 MG in NS 450 ML IV ONE
[2021-12-29 10:00] VITALS: BP 132/78
[2021-12-29 10:30] VITALS: BP 144/78
[2021-12-29 11:30] VITALS: BP 135/81
[2021-12-29 12:00] VITALS: BP 154/82
== END 2021-12-29 12:05 | disposition home or self-care (01) ==
LOC: M INFU 08:30
PROVIDERS: ATTEND Psychiatry & Neurology Neurology
DX: G36.0 Neuromyelitis optica [Devic] (principal); Z88.6 Allergy status to analgesic agent
CPT/HCPCS: 96375; 96413; 96415; J1200; J2930; J9312

== ENCOUNTER → 2022-02-27 | Outpatient (CLI) | payer MEDICARE, OTHER ==
[~2022-02-27] MED LIST changes: -ACETAMINOPHEN TAB 650MG DOSE (2X325MG) PO ONE; -ALBUTEROL SULFATE 2.5 MG/0.5 ML INH NEB SOLN INH PRN; -EPINEPHrine INJ 1 MG/ML 1ML AMP IM PRN; -NS 1,000 ML IV SCH; -diphenhydrAMINE 50MG/ML VIAL (J1200) IV ONE; -diphenhydrAMINE 50MG/ML VIAL (J1200) IV PRN; -methylPREDNISolone 125MG 2ML VIAL IV ONE; -methylPREDNISolone 125MG 2ML VIAL IV PRN; -riTUXimab 500 MG in NS 450 ML IV ONE
== END ==
LOC: M RAD 06:51
PROVIDERS: ATTEND Physician Assistant Medical
DX: R10.9 Unspecified abdominal pain (principal)

== ENCOUNTER → 2022-05-08 | Outpatient (CLI) | payer MEDICARE, OTHER | LOC: M WHC 14:17 | PROVIDERS: ATTEND Family Medicine | DX: Z12.31 Encounter for screening mammogram for malignant neoplasm of breast (principal); Z13.820 Encounter for screening for osteoporosis; M85.852 Other specified disorders of bone density and structure, left thigh ==

== ENCOUNTER → 2022-05-25 | Outpatient (REF) | payer MEDICARE, OTHER | LOC: M SFHCLERA 16:52 | PROVIDERS: ATTEND Family Medicine | DX: R39.15 Urgency of urination (principal) ==

== ENCOUNTER → 2022-06-12 | Outpatient (REF) | payer MEDICARE, OTHER ==
[2022-06-12 13:59] LABS: APPEARANCE, URINE MANUAL HAZY (CLEAR); BILIRUBIN, URINE MANUAL NEGATIVE (NEGATIVE); BLOOD URINE MANUAL TRACE (NEGATIVE); COLOR, URINE MANUAL YELLOW (YELLOW); GLUCOSE, URINE (UA) MANUAL NEGATIVE (NEGATIVE); KETONE, URINE MANUAL NEGATIVE (NEGATIVE); LEUKOCYTE ESTERASE, URINE MAN POSITIVE (NEGATIVE); NITRITE, URINE MANUAL NEGATIVE (NEGATIVE); PROTEIN, URINE MANUAL NEGATIVE (NEGATIVE); UROBILINOGEN, URINE MANUAL NORMAL (NORMAL)
[2022-06-12 14:18] LABS: BACTERIA, URINE SMALL AMOUNT; RBC, URINE 0-1 /hpf (0-3); SQUAMOUS EPITHELIAL CELL URINE SMALL AMOUNT /hpf (SMALL AMT)
[2022-06-12 14:19] LABS: HYALINE CAST, URINE NONE SEEN /lpf (0-1); MUCUS, URINE MOD AMOUNT (NEGATIVE)
== END ==
LOC: M SMT 13:11
PROVIDERS: ATTEND Physician Assistant
DX: N39.0 Urinary tract infection, site not specified (principal)

== ENCOUNTER → 2022-10-24 | Outpatient (REF) | payer MEDICARE, OTHER | LOC: M SFHCLERA 17:14 | PROVIDERS: ATTEND Family Medicine | DX: R30.0 Dysuria (principal) ==

== ENCOUNTER 2022-12-13 20:36 | Emergency (ER) | payer MEDICARE, OTHER ==
[~2022-12-13] VITALS: Ht 167.6 cm; Wt 93.3 kg
[2022-12-13] MEDS ORDERED: MORPHINE 4 MG/ML 1ML VIAL IV ONE (22:00)
[2022-12-13] MEDS ORDERED: NS 1,000 ML IV ONE (22:00)
[2022-12-13] MEDS ORDERED: ONDANSETRON 4MG 2ML VIAL IV ONE (22:00)
[2022-12-13 22:08] LABS: BASO # 0.1 10^3/uL (0.0-0.2); BASO % 0.9 % (0.0-1.0); EOS # 0.4 10^3/uL (0.0-0.5); HEMATOCRIT 42.3 % (36.0-47.0); HEMOGLOBIN 14.3 g/dl (12.0-15.5); LYMPH # 3.4 10^3/uL (1.5-5.0); LYMPH % 24.6 % (24.0-44.0); MEAN CORPUSCULAR HEMOGLOBIN 30.9 pg (27.0-33.0); MEAN CORPUSCULAR HGB CONC 33.8 g/dl (32.0-36.5); MEAN CORPUSCULAR VOLUME 91.4 fl (80.0-96.0); MONO # 1.4 10^3/uL (0.0-0.8); MONO % 9.8 % (2.0-8.0); NEUTROPHILS # 8.4 10^3/uL (1.5-8.5); NEUTROPHILS % 61.1 % (36.0-66.0); PLATELET COUNT, AUTOMATED 315 10^3/uL (150-450); RED BLOOD COUNT 4.63 10^6/uL (4.00-5.40); WHITE BLOOD COUNT 13.8 10^3/uL (4.0-10.0)
[2022-12-13 22:36] LABS: LIPASE 37 U/L (12-53)
[2022-12-13 22:37] LABS: AMYLASE 55 U/L (30-118)
[2022-12-13 22:38] LABS: CK-MB VALUE MASS < 1.0 NG/ML (<3.6); CPK CREATINE PHOSPHOKINASE 52 U/L (34-145); MB/CK RELATIVE INDEX 1.92 (< OR =4)
[2022-12-13 22:42] LABS: ALBUMIN 3.7 G/DL (3.2-5.2); ALKALINE PHOSPHATASE 109 U/L (46-116); ALT/SGPT 18 U/L (7.0-40); AST/SGOT 14 U/L (<34); BILIRUBIN,DIRECT 0.1 MG/DL (<0.4); BILIRUBIN,TOTAL 0.5 MG/DL (0.3-1.2); BLOOD UREA NITROGEN 17 MG/DL (9-23); CALCIUM LEVEL 9.4 MG/DL (8.3-10.6); CARBON DIOXIDE LEVEL 30 MMOL/L (20-31); CHLORIDE LEVEL 105 MMOL/L (98-107); GLOMERULAR FILTRATION RATE > 60.0 (>45); GLUCOSE, FASTING 94 MG/DL (74-106); POTASSIUM SERUM 3.6 MMOL/L (3.5-5.1); SODIUM LEVEL 143 MMOL/L (136-145); TOTAL PROTEIN 5.8 G/DL (5.7-8.2)
[2022-12-13] MEDS ORDERED: ISOVUE-370 76% 100ML VIAL As Ordered ONE (22:52)
[2022-12-14 00:03] LABS: INR 0.87
[2022-12-14 00:06] LABS: CK-MB VALUE MASS < 1.0 NG/ML (<3.6)
[2022-12-14 00:09] LABS: CPK CREATINE PHOSPHOKINASE 117 U/L (34-145); MB/CK RELATIVE INDEX 0.85 (< OR =4)
[2022-12-14 00:45] VITALS: BP 126/72
== END 2022-12-14 01:22 | disposition home or self-care (01) ==
LOC: M ED 20:36
DX: R10.13 Epigastric pain (principal); K83.8 Other specified diseases of biliary tract; E11.9 Type 2 diabetes mellitus without complications; E03.9 Hypothyroidism, unspecified; Z88.6 Allergy status to analgesic agent; Z79.891 Long term (current) use of opiate analgesic; Z79.4 Long term (current) use of insulin; Z79.899 Other long term (current) drug therapy
CPT/HCPCS: 74177; 80048; 80076; 81001; 82150; 82550; 82553; 83690; 84484; 85025; 85610; 87086; 93005; 93041; 96361; 96374; 99284; J2270; J2405; Q9967

== ENCOUNTER → 2022-12-29 | Outpatient (REF) | payer MEDICARE, OTHER ==
[2022-12-29 17:33] LABS: APPEARANCE, URINE CLOUDY (CLEAR); BACTERIA, URINE AUTO NEGATIVE (NEGATIVE); BILIRUBIN, URINE AUTO NEGATIVE (NEGATIVE); BLOOD, URINE BLOOD NEGATIVE (NEGATIVE); CALCIUM OXALATE CRYSTALS SMALL; COLOR, URINE YELLOW (YELLOW); GLUCOSE, URINE (UA) AUTO NEGATIVE (NEGATIVE); KETONE, URINE AUTO NEGATIVE (NEGATIVE); LEUKOCYTE ESTERASE, URINE AUTO NEGATIVE (NEGATIVE); MUCUS, URINE SMALL (NEGATIVE); NITRITE, URINE AUTO NEGATIVE (NEGATIVE); PROTEIN, URINE AUTO NEGATIVE (NEGATIVE); RBC, URINE AUTO 2 /HPF (0-3); SPECIFIC GRAVITY URINE AUTO 1.026 (1.002-1.035); SQUAMOUS EPITHELIAL CELL UR AU 1 /HPF (0-6); UROBILINOGEN, URINE AUTO 0.2 mg/dL (0.0-2.0); WBC, URINE AUTO 2 /HPF (0-3)
== END ==
LOC: M SMT 16:46
PROVIDERS: ATTEND Physician Assistant
DX: N39.0 Urinary tract infection, site not specified (principal)

== ENCOUNTER 2023-02-07 07:27 | Emergency (ER) | payer MEDICARE, OTHER ==
[~2023-02-07] VITALS: Ht 167.6 cm; Wt 93.9 kg
[2023-02-07] MEDS ORDERED: IPRATROPIUM 0.5MG/ALBUTEROL 2.5MG INH SOL UD 3ML (DUONEB) NEB ONE (11:20)
[2023-02-07] MEDS ORDERED: PRED20TA PO (12:21)
[2023-02-07] MEDS ORDERED: VENTAER INH (12:21)
[2023-02-07 12:37] VITALS: BP 128/77
== END 2023-02-07 12:43 | disposition home or self-care (01) ==
LOC: M ED 07:27
DX: R05.3 Chronic cough (principal); E11.9 Type 2 diabetes mellitus without complications; J45.909 Unspecified asthma, uncomplicated; E03.9 Hypothyroidism, unspecified; Z79.84 Long term (current) use of oral hypoglycemic drugs; Z88.6 Allergy status to analgesic agent; Z79.52 Long term (current) use of systemic steroids; Z79.899 Other long term (current) drug therapy